=== PATIENT | female | born 1980 | race Hispanic/Latino ===

== ENCOUNTER 2018-11-17 16:25 | Emergency (ER) | payer BC, SELFPAY ==
[2018-11-17] MEDS ORDERED: Lidocaine 1% w/Epinephrine 1:100K 20 ML VIAL ONE (17:45)
[2018-11-17] MEDS ORDERED: Adacel (T-DAP) 0.5 ML SYRINGE ONE (17:54)
== END 2018-11-17 18:11 | disposition home or self-care (01) ==
LOC: ERS 16:25
DX: L02.414 Cutaneous abscess of left upper limb (principal)
CPT/HCPCS: 10061; 90471; 90715; J2001

== ENCOUNTER 2018-11-18 22:33 | Emergency (ER) | payer SELFPAY | END 2018-11-18 23:49 | disposition home or self-care (01) | LOC: ERS 22:33 | DX: Z48.817 Encounter for surgical aftercare following surgery on the skin and subcutaneous tissue (principal) | CPT/HCPCS: 99282 ==

== ENCOUNTER 2019-02-23 11:20 | Emergency (ER) | payer SELFPAY ==
--- NOTE | 2019-02-23 12:39 | RAD ---
PA AND LATERAL VIEWS CHEST: HISTORY: Chest pain, fall on the left side and now the left side of chest hurts. FINDINGS: The heart size is normal. The lungs are expanded without lobar consolidation, pneumothoraces, or ple ural effusions. There are mild degenerative changes in the spine. IMPRESSION: No radiographic evidence of acute cardiopulmonary process. POS: [facility]
--- NOTE | 2019-02-23 12:40 | RAD ---
LEFT SHOULDER 3 VIEWS: HISTORY: Fall. Left shoulder pain. FINDINGS/IMPRESSION: No acute fracture or dislocation is identified. POS: [facility]
[2019-02-23 12:49] LABS: #Basophils 0.1 thou/uL (0.0-0.2); #Eosinphils 0.2 thou/uL (0.0-0.7); #Lymphocytes 2.1 thou/uL (1.20-3.40); #Monocytes 0.5 thou/uL (0.11-0.59); #Neutrophils 6.3 thou/uL (1.40-6.50); %Basophils 0.7 % (0.0-1.0); %Eosinophils 1.8 % (0.0-10.0); %Lymphocytes 23.2 % (21.0-51.0); %Monocytes 5.8 % (0.0-10.0); %Neutrophils 68.5 % (42.0-75.0); Hemoglobin 14.4 g/dL (12.0-16.0); Mean Corpuscular Hemoglobin 29.8 pg (27.0-31.0); Mean Corpuscular Volume 90.4 fL (78.0-98.0); Mean Platelet Volume 7.2 fL (7.4-10.4); Platelet Count 231 thou/uL (130-400); RBC Distribution Width 12.5 % (11.5-14.5); Red Blood Cell (RBC) Count 4.84 mill/uL (4.20-5.40); White Blood Cell (WBC) Count 9.2 thou/uL (4.8-10.8)
[2019-02-23 13:10] LABS: ALT (SGPT) 34 U/L (8-55); AST (SGOT) 29 U/L (5-34); Albumin 4.4 g/dL (3.5-5.0); Alkaline Phosphatase 94 U/L (40-150); Anion Gap 13 mmol/L (10-20); BUN (Urea Nitrogen) 7 mg/dL (7.0-18.7); Bilirubin, Total 0.5 mg/dL (0.2-1.2); CK (CPK) 95 U/L (29-168); Calc. Creatinine Clearance 0 mL/min (70-130); Calcium 9.4 mg/dL (7.8-10.44); Carbon Dioxide 29 mmol/L (22-29); Chloride 103 mmol/L (98-107); Estimated GFR-MDRD 90; Globulin 3.9 g/dL (2.4-3.5); Glucose 101 mg/dL (70-105); Lipase 12 U/L (8-78); Potassium 3.8 mmol/L (3.5-5.1); Protein, Total 8.3 g/dL (6.0-8.3); Sodium 141 mmol/L (136-145)
[2019-02-23 16:12] LABS: Bilirubin Negative (Negative); Blood, Urine Negative (Negative); Clarity CLEAR (Clear); Glucose, Urine (Dipstick) Negative (Negative); Leukocyte Negative (Negative); Nitrite Negative (Negative); Protein, Urine (Dipstick) Negative (Neg-Trace); Specific Gravity, Urine 1.011 (1.002-1.036); Urobilinogen 0.2 mg/dL (0.2-1.0); pH, Urine 6.5 (5.0-9.0)
[2019-02-23 16:56] LABS: Troponin I Less than 0.010 ng/mL (< 0.028)
== END 2019-02-23 17:05 | disposition home or self-care (01) ==
LOC: ERS 11:20
DX: R07.89 Other chest pain (principal); I10 Essential (primary) hypertension; Z85.42 Personal history of malignant neoplasm of other parts of uterus; E66.9 Obesity, unspecified; W19.XXXA Unspecified fall, initial encounter
CPT/HCPCS: 36415; 71046; 80053; 81003; 82550; 83690; 84484; 85025; 85379; 93005; 94760

== ENCOUNTER 2019-07-03 14:01 | Emergency (ER) | payer SELFPAY ==
[~2019-07-03 14:01] MED LIST: ISOVUE-370 76%-LOCM 1 ML ONE
[2019-07-03 14:54] LABS: #Eosinphils 0.1 thou/uL (0.0-0.7); #Lymphocytes 1.7 thou/uL (1.20-3.40); #Monocytes 0.4 thou/uL (0.11-0.59); #Neutrophils 3.9 thou/uL (1.40-6.50); %Basophils 0.5 % (0.0-1.0); %Eosinophils 2.1 % (0.0-10.0); %Lymphocytes 27.3 % (21.0-51.0); %Monocytes 6.9 % (0.0-10.0); %Neutrophils 63.2 % (42.0-75.0); Hemoglobin 13.5 g/dL (12.0-16.0); Mean Corpuscular HGB CONC 33.9 g/dL (32.0-36.0); Mean Corpuscular Hemoglobin 30.4 pg (27.0-31.0); Mean Corpuscular Volume 89.6 fL (78.0-98.0); Mean Platelet Volume 7.4 fL (7.4-10.4); Platelet Count 193 thou/uL (130-400); RBC Distribution Width 12.1 % (11.5-14.5); Red Blood Cell (RBC) Count 4.45 mill/uL (4.20-5.40); White Blood Cell (WBC) Count 6.2 thou/uL (4.8-10.8)
[2019-07-03] MEDS ORDERED: Nitroglycerin 0.4 MG TAB 1 EACH ONE (15:06)
[2019-07-03] MEDS ORDERED: Aspirin Chewable 81 MG TAB ONE (15:06)
[2019-07-03 15:23] LABS: ALT (SGPT) 30 U/L (8-55); AST (SGOT) 27 U/L (5-34); Albumin 3.9 g/dL (3.5-5.0); Alkaline Phosphatase 74 U/L (40-150); Anion Gap 13 mmol/L (10-20); BUN (Urea Nitrogen) 8 mg/dL (7.0-18.7); Bilirubin, Total 0.5 mg/dL (0.2-1.2); CK (CPK) 84 U/L (29-168); Calc. Creatinine Clearance 0 mL/min (70-130); Calcium 9.1 mg/dL (7.8-10.44); Carbon Dioxide 26 mmol/L (22-29); Chloride 104 mmol/L (98-107); Estimated GFR-MDRD Greater than 90; Globulin 3.5 g/dL (2.4-3.5); Glucose 114 mg/dL (70-105); Potassium 3.1 mmol/L (3.5-5.1); Protein, Total 7.4 g/dL (6.0-8.3); Sodium 140 mmol/L (136-145)
--- NOTE | 2019-07-03 15:25 | RAD ---
EXAM: Portable chest PROVIDED CLINICAL HISTORY: Chest pain COMPARISON: 06/07/2015 FINDINGS: Evaluation is limited by patient body habitus. The cardiac silhouette appears enlarged, which may be least partially on the basis of portable technique. No focal consolidation, pleural fluid or pneumothorax evident. IMPRESSION: No evidence for an acute cardiopulmonary process.
[2019-07-03] MEDS ORDERED: Nitroglycerin 2% Ointment 1 INCH/1 GM Packet ONE (15:49)
--- NOTE | 2019-07-03 16:39 | CT ---
EXAM: CTA of the chest HISTORY: Substernal chest pain COMPARISON: None TECHNIQUE: Multiple contiguous axial images were obtained a CTA of the chest with contrast per pulmon onelia embolism protocol. 3-D oblique MIP reformats and direct coronal reformats were performed. FINDINGS: HEART: Normal in size without focal cardiac abnormality PULMONARY ARTERIES: There is streak artifact from contrast in the superior vena cava and the patient' s large body habitus limiting evaluation of the right pulmonary artery. Normal in caliber without obvious filling defects to suggest pulmonary emboli. MEDIASTINUM: No hilar or mediastinal lymphadenopathy. LUNGS: No focal infiltrates or masses. PLEURAL SPACE: No pleural effusion or pneumothorax. CHEST WALL SOFT TISSUES: Unremarkable VISUALIZED OSSEOUS STRUCTURES: Degenerative changes in the spine. VISUALIZED SUBDIAPHRAGMATIC STRUCTURES: Unremarkable IMPRESSION: No evidence of pulmonary thromboembolism
== END 2019-07-03 17:18 | disposition home or self-care (01) ==
LOC: ERS 14:01
DX: R07.89 Other chest pain (principal); E66.9 Obesity, unspecified; Z85.42 Personal history of malignant neoplasm of other parts of uterus; Z79.899 Other long term (current) drug therapy
CPT/HCPCS: 36415; 71045; 71275; 80053; 82550; 83690; 84484; 85025; 93005; 94760; Q9966

== ENCOUNTER 2019-07-15 10:06 | Emergency (ER) | payer SELFPAY ==
[2019-07-15 10:37] LABS: #Basophils 0.1 thou/uL (0.0-0.2); #Eosinphils 0.2 thou/uL (0.0-0.7); #Lymphocytes 1.6 thou/uL (1.20-3.40); #Monocytes 0.4 thou/uL (0.11-0.59); #Neutrophils 3.5 thou/uL (1.40-6.50); %Basophils 1.7 % (0.0-1.0); %Eosinophils 2.9 % (0.0-10.0); %Lymphocytes 27.9 % (21.0-51.0); %Monocytes 6.8 % (0.0-10.0); %Neutrophils 60.7 % (42.0-75.0); Hemoglobin 13.9 g/dL (12.0-16.0); Mean Corpuscular HGB CONC 33.8 g/dL (32.0-36.0); Mean Corpuscular Volume 88.8 fL (78.0-98.0); Mean Platelet Volume 7.9 fL (7.4-10.4); Platelet Count 169 thou/uL (130-400); RBC Distribution Width 12.3 % (11.5-14.5); Red Blood Cell (RBC) Count 4.63 mill/uL (4.20-5.40); White Blood Cell (WBC) Count 5.7 thou/uL (4.8-10.8)
--- NOTE | 2019-07-15 10:40 | RAD ---
XR Chest 1 View Portable History: Shortness of breath Comparison: Radiograph July 03, 2019 Findings: Heart size mildly prominent. Mild pulmonary venous congestion. No pneumothorax. No effusion . Lungs are mildly hypoinflated. No acute osseous abnormality. Impression: Mild cardiomegaly and pulmonary venous congestion.
[2019-07-15 11:09] LABS: ALT (SGPT) 36 U/L (8-55); AST (SGOT) 31 U/L (5-34); Alkaline Phosphatase 79 U/L (40-150); Anion Gap 13 mmol/L (10-20); BUN (Urea Nitrogen) 8 mg/dL (7.0-18.7); Bilirubin, Total 0.5 mg/dL (0.2-1.2); CK (CPK) 114 U/L (29-168); Calc. Creatinine Clearance 0 mL/min (70-130); Calcium 8.8 mg/dL (7.8-10.44); Carbon Dioxide 29 mmol/L (22-29); Chloride 105 mmol/L (98-107); Estimated GFR-MDRD 88; Globulin 3.3 g/dL (2.4-3.5); Glucose 111 mg/dL (70-105); Lipase 15 U/L (8-78); Potassium 3.6 mmol/L (3.5-5.1); Protein, Total 7.3 g/dL (6.0-8.3); Sodium 143 mmol/L (136-145)
== END 2019-07-15 11:28 | disposition home or self-care (01) ==
LOC: ERS 10:06
DX: R07.89 Other chest pain (principal); F41.1 Generalized anxiety disorder; E66.9 Obesity, unspecified; Z79.899 Other long term (current) drug therapy
CPT/HCPCS: 36415; 71045; 80053; 82550; 83690; 84484; 85025; 93005; 94760

== ENCOUNTER 2020-05-09 07:45 | Outpatient (CLI) | payer OTHER ==
--- NOTE | 2020-05-09 11:05 | CT ---
CT Abdomen Pelvis W Con: 05/09/2020 12:00 AM CLINICAL INFORMATION: Epigastric pain for months after eating COMPARISON: None. TECHNIQUE: Multiple contiguous axial images were obtained and a CT of the abdomen and pelvis with IV contrast. Oral contrast was administered. Coronal and sagittal reformats were performed. FINDINGS: Lower Chest: within normal limits. Abdomen: Liver: within normal limits. Bile Ducts: Normal caliber. Gallbladder: Removed Pancreas: within normal limits. Spleen: within normal limits. Adrenals: within normal limits. Kidneys: within normal limits. Pelvis: Reproductive Organs: No pelvic masses. Ureters: within normal limits. Bladder: within normal limits. Peritoneum: No ascites or free air, no fluid collection. Bowel: Normal caliber. Normal appendix. Mesentery and Retroperitoneum: No enlarged mesenteric or retroperitoneal lymph nodes. Vessels: Normal. Abdominal Wall: 5.4 cm ventral hernia containing transverse colon Bones: Degenerative changes in the spine. IMPRESSION: 1. No evidence of acute intraabdominal or pelvic abnormality. 2. Ventral hernia
[2020-05-09] MEDS ORDERED: Iopamidol 370 76% 50 ML VIAL FS ONE (16:22)
[2020-05-09] MEDS ORDERED: Iopamidol 370 76% 100 ML VIAL ONE (16:22)
== END 2020-05-09 07:46 | disposition home or self-care (01) ==
LOC: CT 07:45
PROVIDERS: ATTEND Family Medicine
DX: R10.13 Epigastric pain (principal); K43.9 Ventral hernia without obstruction or gangrene
CPT/HCPCS: 74177; Q9967

== ENCOUNTER 2020-05-18 11:20 | Emergency (ER) | payer SELFPAY ==
[2020-05-18] MEDS ORDERED: Iopamidol-370 76% 500 ML 1 ML ONE (11:46)
[2020-05-18] MEDS ORDERED: Morphine 4 MG/ML VIAL ONE (12:06)
[2020-05-18 12:12] LABS: #Basophils 0.1 thou/uL (0.0-0.2); #Eosinphils 0.2 thou/uL (0.0-0.7); #Lymphocytes 1.7 thou/uL (1.20-3.40); #Monocytes 0.4 thou/uL (0.11-0.59); %Basophils 1.2 % (0.0-1.0); %Eosinophils 2.4 % (0.0-10.0); %Lymphocytes 27.1 % (21.0-51.0); %Monocytes 6.6 % (0.0-10.0); %Neutrophils 62.6 % (42.0-75.0); Hemoglobin 13.4 g/dL (12.0-16.0); Mean Corpuscular HGB CONC 32.3 g/dL (32.0-36.0); Mean Corpuscular Hemoglobin 29.6 pg (27.0-31.0); Mean Corpuscular Volume 91.5 fL (78.0-98.0); Mean Platelet Volume 7.1 fL (7.4-10.4); Platelet Count 188 thou/uL (130-400); RBC Distribution Width 12.4 % (11.5-14.5); Red Blood Cell (RBC) Count 4.52 mill/uL (4.20-5.40); White Blood Cell (WBC) Count 6.3 thou/uL (4.8-10.8)
[2020-05-18 12:31] LABS: ALT (SGPT) 41 U/L (8-55); AST (SGOT) 42 U/L (5-34); Albumin 3.7 g/dL (3.5-5.0); Alkaline Phosphatase 83 U/L (40-110); Anion Gap 12 mmol/L (10-20); BUN (Urea Nitrogen) 7 mg/dL (7.0-18.7); Bilirubin, Total 0.5 mg/dL (0.2-1.2); Calc. Creatinine Clearance 0 mL/min (70-130); Carbon Dioxide 30 mmol/L (22-29); Chloride 102 mmol/L (98-107); Estimated GFR-MDRD 84; Globulin 3.7 g/dL (2.4-3.5); Glucose 140 mg/dL (70-105); Lipase 12 U/L (8-78); Potassium 3.6 mmol/L (3.5-5.1); Protein, Total 7.4 g/dL (6.0-8.3); Sodium 140 mmol/L (136-145)
[2020-05-18 12:47] LABS: BHCG - Serum Negative (NEGATIVE); Pregs Control Background? CLEAR/WHITE (CLR/WHITE); Pregs Control Bar Appear? YES (CONTROL BAR)
--- NOTE | 2020-05-18 13:16 | CT ---
EXAM: CT ABDOMEN AND PELVIS HISTORY: Abdominal pain. Morbid obesity. COMPARISON: 05/09/2020 Procedure: Multiple contiguous axial images were obtained and a CT of the abdomen and pelvis with IV contrast. C oronal reformats were performed. FINDINGS: Lower Chest: Minimal dependent atelectatic changes Vessels: Normal caliber aorta Heart: Normal heart size Abdomen: Portal vein:Patent Gallbladder: Surgically absent Liver: Hypoattenuation due to hepatic steatosis. No enhancing masses Pancreas: within normal limits. Spleen: within normal limits. Adrenals: within normal limits. Kidneys: Symmetric enhancement. No obstructive uropathy. Peritoneum: No ascites or free air, no fluid collection. Bowel: Limited evaluation due to the lack of oral contrast administration. No evidence of bowel obstr uction. Ileocecal junction is unremarkable. Normal caliber appendix. Appendicoliths are noted. No inflammatory change. Scattered fecal material in a nondistended, nondilated colon. Mesentery and Retroperitoneum: No enlarged mesenteric or retroperitoneal lymph nodes. Abdominal Wall: Redemonstration of ventral abdominal wall hernia. Hernia defect is 5 cm. There is a s egment of transverse colon extending through the defect. Afferent transverse colon is mildly dilated. Efferent transverse colon is decompressed. Correlate for component of partial incarceration/ obstruction. Pelvis: Reproductive Organs: Uterus is surgically absent Pelvis: No mass, lymphadenopathy, free air or free fluid. Bladder: within normal limits. Bones: within normal limits. IMPRESSION: Redemonstration of a ventral abdominal wall hernia containing a segment of transverse colon through t he defect. Afferent loops are somewhat prominent. Efferent loops are decompressed. Correlate for partial obstructive process. Consider general surgical consultation. Transcribed Date/Time: 05/18/2020 1:33 PM
[2020-05-18 13:58] LABS: Bilirubin Negative (Negative); Blood, Urine Negative (Negative); Clarity Clear (Clear); Glucose, Urine (Dipstick) Normal (Negative); Ketone, Urine Negative (Negative); Leukocyte Negative Leu/uL (Negative); Nitrite Negative (Negative); Protein, Urine (Dipstick) 10 mg/dL (Neg-Trace); Urobilinogen Normal mg/dL (Less than 2); pH, Urine 6.5 (5.0-9.0)
[2020-05-18 13:59] LABS: Specific Gravity, Urine 1.044 (1.002-1.036)
== END 2020-05-18 14:34 | disposition home or self-care (01) ==
LOC: ERS 11:20
DX: K43.2 Incisional hernia without obstruction or gangrene (principal); E66.01 Morbid (severe) obesity due to excess calories; Z79.899 Other long term (current) drug therapy
CPT/HCPCS: 36415; 74177; 80053; 81003; 83605; 83690; 84703; 85025; 96374; J2270; Q9967

== ENCOUNTER 2021-04-25 06:59 | Outpatient (CLI) | payer OTHER | END 2021-04-25 07:00 | disposition home or self-care (01) | LOC: BICULT 06:59 | PROVIDERS: ATTEND Family Medicine | DX: R74.8 Abnormal levels of other serum enzymes (principal); Z90.49 Acquired absence of other specified parts of digestive tract | CPT/HCPCS: 76705 ==